=== PATIENT | male | born 1955 | race Caucasian/White ===

== ENCOUNTER 2018-06-15 10:39 | Emergency (ER) | payer MEDICAID ==
--- NOTE | 2018-06-15 10:55 | EDM.PDOC ---
ED HPI GENERAL MEDICAL PROBLEM - General Stated Complaint: AVIB Time Seen by Provider: 06/15/18 10:42 Source of Information: Reports: Patient, Other (evidence technician noted a 2 fibrillation with a ejection fraction 20% sent to the ED because heart rate was 140s) History Limitations: Reports: No Limitations - Related Data Allergies Allergy/AdvReac Type Severity Reaction Status Date / Time No Known Allergies Allergy Verified 06/15/18 11:24 Home Meds: Home Meds Losartan/Hydrochlorothiazide [Losartan-HCTZ 50-12.5 MG] 1 each PO DAILY [History] Metoprolol Succinate 50 mg PO DAILY 06/15/18 [History] Warfarin Sodium [Jantoven] 10 mg PO DAILY 06/15/18 [History] ED ROS GENERAL - Review of Systems Review Of Systems: See Below Constitutional: Reports: No Symptoms HEENT: Reports: No Symptoms Respiratory: Reports: No Symptoms Cardiovascular: Reports: Dyspnea on Exertion, Other (Dyspnea at 150, treated hypertension. Atrial fibrillation using warfarin. 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.) Endocrine: Reports: No Symptoms GI/Abdominal: Reports: No Symptoms : Reports: No Symptoms Musculoskeletal: Reports: No Symptoms Skin: Reports: No Symptoms Neurological: Reports: No Symptoms Hematologic/Lymphatic: Reports: No Symptoms Immunologic: Reports: No Symptoms ED EXAM, GENERAL - Physical Exam Exam: See Below Exam Limited By: No Limitations General Appearance: Alert, WD/WN, Other (Markedly obese man in no acute distress ) Eye Exam: Bilateral Eye: Normal Inspection Ears: Normal External Exam, Normal Canal, Hearing Grossly Normal, Normal TMs Ear Exam: Bilateral Ear: Auricle Normal, Canal Normal, TM normal Nose: Normal Inspection, Normal Mucosa, No Blood Throat/Mouth: Normal Inspection, Normal Lips, Normal Teeth, Normal Gums, Normal Oropharynx, Normal Voice Head: Atraumatic, Normocephalic Neck: Normal Inspection, Supple, Non-Tender, Full Range of Motion, Other (No tracheal tug no tracheal deviation) Cardiovascular: Normal Peripheral Pulses, No Edema, No Gallop, No JVD, No Murmur , No Rub, Irregularly Irregular Peripheral Pulses: 1+: Carotid (L), Carotid (R), Radial (L), Radial (R), Dorsalis Pedis (L), Dorsalis Pedis (R) GI/Abdominal: Normal Bowel Sounds, Soft, Non-Tender, No Organomegaly, No Distention, No Abnormal Bruit, No Mass, Other (Moderate abdominal wall nonpigmented striae) (Male) Exam: No Hernia, Deferred Rectal (Males) Exam: Normal Exam, Deferred Neurological: Alert, Oriented, CN II-XII Intact, Normal Cognition, Normal Gait, Normal Reflexes, Other (Absent deep tendon reflexes) Psychiatric: Normal Affect, Normal Mood Skin Exam: Warm, Dry, Intact, Other (Moderate stasis dermatitis and brawny discoloration lower extremities without edema) Lymphatic: No Adenopathy EKG INTERPRETATION Rhythm: A-Fib Rate (Beats/Min): 119 [place]: Other (-51) P-Wave: Absent QRS: Other (Old inferior CT large rS waves in III aVF) ST-T: Normal QT: Normal EKG Interpretation Comments: H a fibrillation old inferior infarct Course - Vital Signs Last Recorded V/S: Last Vital Signs Temp 36.4 C 06/15/18 10:39 Pulse 112 H 06/15/18 11:25 Resp 18 06/15/18 10:39 BP 155/111 H 06/15/18 11:25 Pulse Ox 93 L 06/15/18 10:39 - Orders/Labs/Meds Orders: Active Orders 24 hr Category Date Time Status INR,PT,PROTHROMBIN TIME [COAG] Urgent Lab 06/15/18 12:02 Ordered Metoprolol Succinate [Toprol XL] Med 06/15/18 11:15 Active 50 mg PO DAILY Medication Orders Metoprolol Succinate (Toprol Xl) 50 mg PO DAILY [facility] Last Admin: 06/15/18 11:25 Dose: 50 mg Labs: Laboratory Tests 06/15/18 06/15/18 06/15/18 Range/Units 11:20 11:20 11:20 WBC 14.7 H (4.5-12.0) X10-3/uL RBC 5.36 (4.30-5.75) x10(6)uL Hgb 15.6 H (11.5-15.5) g/dL Hct 47.5 (30.0-51.3) % MCV 88.6 (80-96) fL MCH 29.1 (27.7-33.6) pg MCHC 32.8 (32.2-35.4) g/dL RDW 13.2 (11.5-15.5) % Plt Count 316 (125-369) X10(3)uL MPV 9.0 (7.4-10.4) fL Add Manual Diff Yes Neutrophils % (Manual) 83 H (46-82) % Band Neutrophils % 1 (0-6) % Lymphocytes % (Manual) 6 L (13-37) % Monocytes % (Manual) 10 (4-12) % D-Dimer, Quantitative 0.28 (0.0-0.59) mg/LFEU Sodium (135-145) mmol/L Potassium (3.5-5.3) mmol/L Chloride (100-110) mmol/L Carbon Dioxide (21-32) mmol/L BUN (7-18) mg/dL Creatinine (0.70-1.30) mg/dL Est Cr Clr Drug Dosing Estimated GFR (MDRD) (>60) BUN/Creatinine Ratio (9-20) Glucose (80-116) mg/dL Calcium (8.6-10.2) mg/dL Total Bilirubin (0.1-1.3) mg/dL AST (5-25) IU/L ALT (12-36) U/L Alkaline Phosphatase (56-112) IU/L Troponin I < 0.017 L (<0.017-0.056) ng/mL Total Protein (6.0-8.0) g/dL Albumin (3.2-4.6) g/dL Globulin g/dL Albumin/Globulin Ratio 06/15/ Range/Units 11:20 WBC (4.5-12.0) X10-3/uL RBC (4.30-5.75) x10(6)uL Hgb (11.5-15.5) g/dL Hct (30.0-51.3) % MCV (80-96) fL MCH (27.7-33.6) pg MCHC (32.2-35.4) g/dL RDW (11.5-15.5) % Plt Count (125-369) X10(3)uL MPV (7.4-10.4) fL Add Manual Diff Neutrophils % (Manual) (46-82) % Band Neutrophils % (0-6) % Lymphocytes % (Manual) (13-37) % Monocytes % (Manual) (4-12) % D-Dimer, Quantitative (0.0-0.59) mg/LFEU Sodium 138 (135-145) mmol/L Potassium 4.2 (3.5-5.3) mmol/L Chloride 102 (100-110) mmol/L Carbon Dioxide 29 (21-32) mmol/L BUN 19 H (7-18) mg/dL Creatinine 0.9 (0.70-1.30) mg/dL Est Cr Clr Drug Dosing TNP Estimated GFR (MDRD) > 60 (>60) BUN/Creatinine Ratio 21.1 H (9-20) Glucose 103 (80-116) mg/dL Calcium 9.2 (8.6-10.2) mg/dL Total Bilirubin 0.7 (0.1-1.3) mg/dL AST 14 (5-25) IU/L ALT 23 (12-36) U/L Alkaline Phosphatase 62 (56-112) IU/L Troponin I (<0.017-0.056) ng/mL Total Protein 7.6 (6.0-8.0) g/dL Albumin 3.1 L (3.2-4.6) g/dL Globulin 4.5 g/dL Albumin/Globulin Ratio 0.7 Meds: Medications Generic Name Dose Route Start Last Admin Trade Name Freq PRN Reason Stop Dose Admin Metoprolol Succinate 50 mg 06/15/18 11:15 06/15/18 11:25 Toprol Xl PO 50 mg DAILY ADALI Administration Departure - Departure Time of Disposition: 11:45 ( he has afibrillation and fast rate and today's echo of 20% ejection fraction.. Metoprolol was started today. His heart rate is coming down to the 90s. Plan continue with metoprolol succinate 50 mg daily. Follow-up with 1 week) Disposition: Home, Self-Care 01 Condition: Good Clinical Impression: Morbid obesity with BMI of 50.0-59.9, adult, Decreased cardiac ejection fraction, Old inferior wall myocardial infarction A-fib Qualifiers: Atrial fibrillation type: chronic Qualified Code(s): I48.2 - Chronic atrial fibrillation - Discharge Information *PRESCRIPTION DRUG MONITORING PROGRAM REVIEWED*: Not Applicable *COPY OF PRESCRIPTION DRUG MONITORING REPORT IN PATIENT RAJESH: Not Applicable Referrals: Kavita Bush PERMASTONE INSTALLER [Primary Care Provider] - Forms: ED Department Discharge Additional Instructions: I have given you a medicine that will slow down your heart rate. There is no suggestion of heart muscle injury. You've been started on 50 mg metoprolol succinate. This tablet will slow down your her heart rate and you would take it once a day. Follow-up with her doctor in 1 week earlier if worse It is great that she ran warfarin. This helps prevent clots from going from you heart to other parts of your body.. - My Orders Last 24 Hours: My Active Orders 06/15/18 11:15 Metoprolol Succinate [Toprol XL] 50 mg PO DAILY 06/15/18 12:02 INR,PT,PROTHROMBIN TIME [COAG] Urgent - Assessment/Plan Last 24 Hours: My Active Orders 06/15/18 11:15 Metoprolol Succinate [Toprol XL] 50 mg PO DAILY 06/15/18 12:02 INR,PT,PROTHROMBIN TIME [COAG] Urgent
[2018-06-15] MEDS: Metoprolol Succinate 50 MG Tab.ER PO SCH (11:25)
== END 2018-06-15 12:20 | disposition home or self-care (01) ==
LOC: FB.ED 10:39
DX: I48.2 Chronic atrial fibrillation (principal); E66.01 Morbid (severe) obesity due to excess calories; I25.2 Old myocardial infarction; Z68.43 Body mass index [BMI] 50.0-59.9, adult
CPT/HCPCS: 36415; 80053; 84484; 85025; 85379; 85610; 93005; 99284; A9270

== ENCOUNTER 2023-05-18 11:40 | Emergency (ER) | payer MEDICARE ==
[2023-05-18] MEDS ORDERED: Ondansetron 4 MG Tab.DIS PO ONE (11:41)
[2023-05-18] MEDS: Sodium Chloride 0.9% 1,000 ML IV SCH ×2 (12:00→13:30)
[2023-05-18 12:01] LABS: BASOPHILS ABSOLUTE AUTO 0.1 x10-3/uL (0.0-0.3); BASOPHILS PERCENT AUTO 1.1 % (0.3-3.8); EOSINOPHILS ABSOLUTE AUTO 0.3 x10-3/uL (0.0-0.6); EOSINOPHILS PERCENT AUTO 3.1 % (0.1-6.8); HEMATOCRIT 43.6 % (38.3-50.1); LYMPHOCYTES ABSOLUTE AUTO 1.3 x10-3/uL (0.5-4.5); LYMPHOCYTES PERCENT AUTO 14.8 % (15.8-45.3); MEAN CORPUSCULAR HEMOGLOBIN 28.4 pg (27.0-33.3); MEAN CORPUSCULAR HGB CONC 32.3 g/dL (28.7-35.3); MEAN CORPUSCULAR VOLUME 87.9 fL (80.8-98.7); MEAN PLATELET VOLUME 8.6 fL (6.7-11.0); MONOCYTES PERCENT AUTO 11.8 % (5.5-15.2); NEUTROPHILS PERCENT AUTO 69.2 % (40.3-71.8); PLATELET COUNT,PLT 361 x10(3)uL (117-477); RED BLOOD CELL COUNT 4.95 x10(6)uL (3.90-5.90); RED CELL DISTRIBUTION WIDTH 14.6 % (12.4-15.0); WHITE BLOOD CELL COUNT,WBC 8.7 x10-3/uL (3.2-10.1)
[2023-05-18 12:09] LABS: A/G RATIO 0.7; ALANINE AMINOTRANSFERASE,ALT 27 U/L (12-36); ALBUMIN 2.8 g/dL (3.2-4.6); ALKALINE PHOSPHATASE 65 IU/L (56-112); ASPARTATE AMNIOTRANSFERASE,AST 32 IU/L (5-25); BILIRUBIN TOTAL 0.9 mg/dL (0.1-1.3); BLOOD UREA NITROGEN,BUN 23 mg/dL (7-18); BUN/CREATININE RATIO 8.2 (9-20); CALCIUM 8.5 mg/dL (8.6-10.2); CARBON DIOXIDE,CO2 28 mmol/L (21-32); CHLORIDE,CL 99 mmol/L (100-110); ESTIMATED GFR 24 mL/min (>60); GLUCOSE RANDOM 101 mg/dL (80-116); POTASSIUM,K 4.2 mmol/L (3.5-5.3); SODIUM,NA 138 mmol/L (135-145)
[2023-05-18 12:16] LABS: CREATININE 2.8 mg/dL (0.70-1.30)
[2023-05-18 12:28] LABS: INR 5.53 (1.00-1.24); PROTHROMBIN TIME 59.6 sec (9.0-11.1)
[2023-05-18 13:31] LABS: INFLUENZA A NAA NEGATIVE (NEGATIVE); INFLUENZA B NAA NEGATIVE (NEGATIVE); RESPIRATORY SYNCYTIAL VIR NAA NEGATIVE (NEGATIVE)
[2023-05-18 13:34] LABS: CORONAVIRUS COVID-19 NAA NEGATIVE (NEGATIVE)
== END 2023-05-18 17:10 | disposition home or self-care (01) ==
LOC: FB.ED 11:40
DX: E86.0 Dehydration (principal); R39.2 Extrarenal uremia; E87.20 Acidosis, unspecified; R79.1 Abnormal coagulation profile; R79.82 Elevated C-reactive protein (CRP); E88.09 Other disorders of plasma-protein metabolism, not elsewhere classified; Z79.899 Other long term (current) drug therapy; Z79.01 Long term (current) use of anticoagulants
CPT/HCPCS: 0241U; 36415; 71046; 80053; 83605; 84484; 85025; 85610; 86140; 87040; 93005; 93010; 96360; 99284; 99285-25; J7030; Q0162

== ENCOUNTER 2023-05-26 10:05 | Observation (INO) | payer MEDICARE ==
[2023-05-26 11:37] LABS: BLOOD UREA NITROGEN,BUN 7 mg/dL (7-18); CALCIUM 7.8 mg/dL (8.6-10.2); CARBON DIOXIDE,CO2 29 mmol/L (21-32); CHLORIDE,CL 102 mmol/L (100-110); ESTIMATED GFR 84 mL/min (>60); GLUCOSE RANDOM 99 mg/dL (80-116); POTASSIUM,K 3.8 mmol/L (3.5-5.3); SODIUM,NA 141 mmol/L (135-145)
[2023-05-26 11:38] LABS: BASOPHILS ABSOLUTE AUTO 0.1 x10-3/uL (0.0-0.3); BASOPHILS PERCENT AUTO 1.2 % (0.3-3.8); EOSINOPHILS ABSOLUTE AUTO 0.3 x10-3/uL (0.0-0.6); EOSINOPHILS PERCENT AUTO 3.8 % (0.1-6.8); HEMATOCRIT 42.4 % (38.3-50.1); HEMOGLOBIN 13.9 g/dL (12.9-17.7); LYMPHOCYTES PERCENT AUTO 14.1 % (15.8-45.3); MEAN CORPUSCULAR HEMOGLOBIN 28.7 pg (27.0-33.3); MEAN CORPUSCULAR HGB CONC 32.7 g/dL (28.7-35.3); MEAN CORPUSCULAR VOLUME 87.8 fL (80.8-98.7); MEAN PLATELET VOLUME 8.8 fL (6.7-11.0); MONOCYTES ABSOLUTE AUTO 0.9 x10-3/uL (0.0-1.2); MONOCYTES PERCENT AUTO 12.4 % (5.5-15.2); NEUTROPHILS ABSOLUTE AUTO 4.9 x10-3/uL (1.7-6.9); NEUTROPHILS PERCENT AUTO 68.5 % (40.3-71.8); PLATELET COUNT,PLT 285 x10(3)uL (117-477); RED BLOOD CELL COUNT 4.83 x10(6)uL (3.90-5.90); RED CELL DISTRIBUTION WIDTH 14.7 % (12.4-15.0); WHITE BLOOD CELL COUNT,WBC 7.1 x10-3/uL (3.2-10.1)
[2023-05-26 11:43] LABS: A/G RATIO 0.7; ALANINE AMINOTRANSFERASE,ALT 21 U/L (12-36); ALBUMIN 2.7 g/dL (3.2-4.6); ALKALINE PHOSPHATASE 69 IU/L (56-112); ASPARTATE AMNIOTRANSFERASE,AST 29 IU/L (5-25); PROTEIN TOTAL,TP 6.5 g/dL (6.0-8.0)
[2023-05-26 11:51] LABS: MAGNESIUM 0.5 mg/dL (1.8-2.5)
[2023-05-26 11:58] LABS: INR 8.52 (1.00-1.24); PROTHROMBIN TIME 92.6 sec (9.0-11.1)
[2023-05-26] MEDS: Metoclopramide 10 MG/2 ML SDV IVPUSH ONE (12:34)
[2023-05-26] MEDS: Phytonadione 5 MG Tab PO ONE (13:34)
[2023-05-26] MEDS ORDERED: Polyethylene Glycol 3350 Powder 17 GM Packet PO PRN (14:11)
[2023-05-26] MEDS: Magnesium Sulfate/Water 4 GM in Premix Bag 1 BAG IV STA (14:33)
[2023-05-26] MEDS ORDERED: Nystatin Topical Powder 30 GM Bottle TOP SCH (14:45)
[2023-05-26] MEDS: Pantoprazole 40 MG Vial IVPUSH SCH (15:22)
[2023-05-26] MEDS: Nystatin Topical Powder 15 GM Bottle TOP SCH (15:22)
[2023-05-26] MEDS: Sodium Chloride 0.9% 1,000 ML IV SCH (15:23)
[2023-05-26] MEDS: Sodium Chloride 0.9% 500 ML IV ONE (15:23)
[2023-05-27 06:46] LABS: BASOPHILS ABSOLUTE AUTO 0.1 x10-3/uL (0.0-0.3); BASOPHILS PERCENT AUTO 0.8 % (0.3-3.8); EOSINOPHILS ABSOLUTE AUTO 0.2 x10-3/uL (0.0-0.6); EOSINOPHILS PERCENT AUTO 3.3 % (0.1-6.8); HEMATOCRIT 38.4 % (38.3-50.1); HEMOGLOBIN 12.4 g/dL (12.9-17.7); LYMPHOCYTES ABSOLUTE AUTO 1.1 x10-3/uL (0.5-4.5); LYMPHOCYTES PERCENT AUTO 14.2 % (15.8-45.3); MEAN CORPUSCULAR HEMOGLOBIN 28.3 pg (27.0-33.3); MEAN CORPUSCULAR HGB CONC 32.3 g/dL (28.7-35.3); MEAN CORPUSCULAR VOLUME 87.7 fL (80.8-98.7); MEAN PLATELET VOLUME 8.5 fL (6.7-11.0); MONOCYTES ABSOLUTE AUTO 0.9 x10-3/uL (0.0-1.2); MONOCYTES PERCENT AUTO 11.9 % (5.5-15.2); NEUTROPHILS ABSOLUTE AUTO 5.2 x10-3/uL (1.7-6.9); NEUTROPHILS PERCENT AUTO 69.8 % (40.3-71.8); PLATELET COUNT,PLT 253 x10(3)uL (117-477); RED BLOOD CELL COUNT 4.38 x10(6)uL (3.90-5.90); RED CELL DISTRIBUTION WIDTH 14.9 % (12.4-15.0); WHITE BLOOD CELL COUNT,WBC 7.4 x10-3/uL (3.2-10.1)
[2023-05-27 06:52] LABS: INR 3.34 (1.00-1.24); PROTHROMBIN TIME 31.4 sec (9.0-11.1)
[2023-05-27 06:54] LABS: A/G RATIO 0.7; ALANINE AMINOTRANSFERASE,ALT 23 U/L (12-36); ALBUMIN 2.4 g/dL (3.2-4.6); ALKALINE PHOSPHATASE 61 IU/L (56-112); ASPARTATE AMNIOTRANSFERASE,AST 24 IU/L (5-25); BILIRUBIN TOTAL 1.3 mg/dL (0.1-1.3); BLOOD UREA NITROGEN,BUN 6 mg/dL (7-18); BUN/CREATININE RATIO 7.5 (9-20); CALCIUM 7.3 mg/dL (8.6-10.2); CARBON DIOXIDE,CO2 29 mmol/L (21-32); CHLORIDE,CL 104 mmol/L (100-110); CREATININE 0.8 mg/dL (0.70-1.30); EST CRCL DRUG DOSING (CG) 98.05 mL/min; ESTIMATED GFR 98 mL/min (>60); GLUCOSE RANDOM 88 mg/dL (80-116); POTASSIUM,K 3.7 mmol/L (3.5-5.3); PROTEIN TOTAL,TP 5.9 g/dL (6.0-8.0); SODIUM,NA 141 mmol/L (135-145)
[2023-05-27 07:06] LABS: MAGNESIUM 0.9 mg/dL (1.8-2.5)
[2023-05-27] MEDS: Sodium Chloride 0.9% 10 ML Syringe FLUSH PRN (07:45)
[2023-05-27] MEDS: Ondansetron 4 MG Tab.DIS PO PRN (07:50)
[2023-05-27] MEDS: Metoprolol Succinate 25 MG Tab.ER PO SCH (09:18)
[2023-05-27] MEDS: Losartan 100 MG Tab PO SCH (09:18)
[2023-05-27] MEDS: Magnesium Sulfate/Water 4 GM in Premix Bag 1 BAG IV ONE (09:29)
[2023-05-27] MEDS ORDERED: Warfarin Sliding Scale PO SCH (10:45)
[2023-05-27] MEDS: Warfarin 5 MG, Warfarin 2.5 MG PO ONE (16:04)
[2023-05-27] MEDS: hydrALAZINE 20 MG/ML SDV IVPUSH PRN (17:09)
[2023-05-27] MEDS: Magnesium Sulfate/Water 2 GM in Premix Bag 1 BAG IV ONE (17:12)
[2023-05-27] MEDS: Acetaminophen 325 MG Tab PO PRN (17:24)
[2023-05-27] MEDS: Potassium Chloride 10 MEQ Tab.ER PO SCH (18:22)
[2023-05-27] MEDS: atorvaSTATin 40 MG Tab PO SCH (20:58)
[2023-05-27] MEDS: Digoxin 125 MCG Tab PO SCH (20:58)
[2023-05-27] MEDS: Acetaminophen/HYDROcodone 325-5 MG Tab PO PRN (22:47)
[2023-05-28] MEDS: Menthol 10%/Methyl Salicylate 30% 85 GM Tube TOP PRN (00:09)
[2023-05-28] MEDS ORDERED: Naloxone 0.4 MG/ML SDV IVPUSH PRN (00:54)
[2023-05-28] MEDS: HYDROmorphone 2 MG/ML SDV IVPUSH ONE (01:33)
[2023-05-28 06:42] LABS: BASOPHILS ABSOLUTE AUTO 0.1 x10-3/uL (0.0-0.3); BASOPHILS PERCENT AUTO 0.8 % (0.3-3.8); EOSINOPHILS ABSOLUTE AUTO 0.1 x10-3/uL (0.0-0.6); EOSINOPHILS PERCENT AUTO 0.6 % (0.1-6.8); HEMATOCRIT 39.3 % (38.3-50.1); LYMPHOCYTES ABSOLUTE AUTO 0.8 x10-3/uL (0.5-4.5); LYMPHOCYTES PERCENT AUTO 8.5 % (15.8-45.3); MEAN CORPUSCULAR HEMOGLOBIN 29.1 pg (27.0-33.3); MEAN CORPUSCULAR HGB CONC 33.1 g/dL (28.7-35.3); MEAN CORPUSCULAR VOLUME 87.8 fL (80.8-98.7); MEAN PLATELET VOLUME 8.5 fL (6.7-11.0); MONOCYTES ABSOLUTE AUTO 1.3 x10-3/uL (0.0-1.2); MONOCYTES PERCENT AUTO 14.4 % (5.5-15.2); NEUTROPHILS ABSOLUTE AUTO 6.9 x10-3/uL (1.7-6.9); NEUTROPHILS PERCENT AUTO 75.7 % (40.3-71.8); PLATELET COUNT,PLT 262 x10(3)uL (117-477); RED BLOOD CELL COUNT 4.47 x10(6)uL (3.90-5.90); RED CELL DISTRIBUTION WIDTH 15.1 % (12.4-15.0); WHITE BLOOD CELL COUNT,WBC 9.1 x10-3/uL (3.2-10.1)
[2023-05-28 06:46] LABS: INR 2.2 (1.00-1.24); PROTHROMBIN TIME 21.4 sec (9.0-11.1)
[2023-05-28 06:51] LABS: A/G RATIO 0.6; ALANINE AMINOTRANSFERASE,ALT 17 U/L (12-36); ALBUMIN 2.4 g/dL (3.2-4.6); ALKALINE PHOSPHATASE 62 IU/L (56-112); ASPARTATE AMNIOTRANSFERASE,AST 21 IU/L (5-25); BILIRUBIN TOTAL 1.8 mg/dL (0.1-1.3); BLOOD UREA NITROGEN,BUN 6 mg/dL (7-18); BUN/CREATININE RATIO 8.6 (9-20); CALCIUM 7.7 mg/dL (8.6-10.2); CARBON DIOXIDE,CO2 30 mmol/L (21-32); CHLORIDE,CL 102 mmol/L (100-110); CREATININE 0.7 mg/dL (0.70-1.30); EST CRCL DRUG DOSING (CG) 112.05 mL/min; ESTIMATED GFR 102 mL/min (>60); GLUCOSE RANDOM 132 mg/dL (80-116); MAGNESIUM 1.3 mg/dL (1.8-2.5); POTASSIUM,K 3.8 mmol/L (3.5-5.3); PROTEIN TOTAL,TP 6.2 g/dL (6.0-8.0); SODIUM,NA 139 mmol/L (135-145)
[2023-05-28] MEDS: Cyclobenzaprine 10 MG Tab PO ONE (10:24)
[2023-05-28] MEDS: Lidocaine 4% 1 each Patch TOP SCH (10:24)
[2023-05-28] MEDS: Magnesium Sulfate/Water 4 GM in Premix Bag 1 BAG IV ONE (10:32)
== END 2023-05-28 13:03 | disposition home or self-care (01) ==
LOC: FB.ED 10:05 → FB.MS 13:14
PROVIDERS: ADMIT Family Medicine; ATTEND Family Medicine
DX: E83.42 Hypomagnesemia (principal); I25.10 Atherosclerotic heart disease of native coronary artery without angina pectoris; B35.6 Tinea cruris; I48.0 Paroxysmal atrial fibrillation; K13.79 Other lesions of oral mucosa; R79.1 Abnormal coagulation profile; E86.0 Dehydration; I95.1 Orthostatic hypotension; E66.01 Morbid (severe) obesity due to excess calories; Z68.41 Body mass index [BMI] 40.0-44.9, adult; Z95.1 Presence of aortocoronary bypass graft; Z79.01 Long term (current) use of anticoagulants; Z79.899 Other long term (current) drug therapy
CPT/HCPCS: 36415; 70450; 72125; 80053; 83735; 84484; 85025; 85610; 93005; 93010; 96374; 99285; A9270; C9113; J0360; J1170; J2765; J3475; J3490; J7030; J7040; Q0162; 96365; 96366; 96375; 96376; G0378